=== PATIENT | male | born 1970 | race Caucasian/White ===

== ENCOUNTER 2017-03-08 20:00 | Inpatient (IN) | payer OTHER ==
[~2017-03-08] VITALS: Ht 193 cm; Wt 112.0 kg
--- NOTE | ~2017-03-08 | PN ---
Unit #: [id number] #: [id number] Patient: RENATE RUIZ [id number] [facility] [address] [place] [address] [id number] I MR#: [id number] NAME: RENATE RUIZ ROOM: P114 Age: 46 Sex: M Admission Date: 03/08/2017 : 1970 Attending Physician: Alex Goldstein M.D. Admitting Physician: Alex Goldstein M.D. Primary Care Physician: Primary Care Physician Leisa CONCEPCION PROGRESS NOTES DATE 03/11/2017 DISCUSSION Mr. Ruiz continues to be isolative in his room. He has mild to moderate detox symptoms and ongoing depressed mood with a downcast affect. He is alert and fully oriented. His memory and concentration are intact. His thought processes are logical and no active psychosis. He continues with suicidal ideation. ASSESSMENT 1. Major depression. 2. Alcohol dependence. PLAN Continue current treatment plan. Dictated by... Alex Goldstein M.D. ERIN/abigail TD: 03/11/2017 23:03 JOB #: [id number] [facility] PROGRESS NOTES Page 1 of 1 X Alex Goldstein MD PROGRESS NOTE
--- NOTE | ~2017-03-08 | PN ---
Unit #: [id number] #: [id number] Patient: RENATE MENDOZA [id number] [facility] [address] [place] [address] [id number] I MR#: [id number] NAME: RENATE MENDOZA ROOM: P110 Age: 46 Sex: M Admission Date: 03/08/2017 : 1970 Attending Physician: Alex Goldstein M.D. Admitting Physician: Alex Goldstein M.D. Primary Care Physician: Leisa Primary Care Physician CARLENE GARCIA NOTES DATE 03/14/2017. DISCUSSION Upon today's assessment, the patient was found sitting in the day room. He was pleasant and cooperative upon assessment and appeared to be in no apparent discomfort at this time. Upon assessment he still exhibited some coarse bilateral tremor in the upper extremity. He also complained of stomach discomfort as well as continuing issues with diarrhea. He does, however, report that his appetite is improved. AT this time he verbalizes no SI or HI and verbalizes no plan of intent at this time. He denies auditory or visual hallucinations and no overt symptoms of psychosis are noted. PLAN The patient reports that he has been in contact with the [facility] and stated that he plans to return there following the resolution of his signs and symptoms of withdrawal and after discharge planned for this coming Thursday. Dictated by Peyton Glaser APRN. Dictated by... Viridiana Alva A.P.R.N. for Alex Goldstein M.D. LATA/gz TD: 03/16/2017 08:17 JOB #: [id number] Unit #: [id number] #: [id number] Patient: RENATE MENDOZA PROGRESS NOTES Page 1 of 1 X Viridiana Alva PROGRESS NOTE
--- NOTE | ~2017-03-08 | DS ---
Unit #: [id number] #: [id number] Patient: RENATE MENDOZA [id number] [facility] [address] [place] [address] [id number] MR#: [id number] NAME: RENATE MENDOZA ROOM: P110 Age: 46 Sex: M Admission Date: 03/08/2017 : 1970 Discharge Date: 03/16/2017 Attending Physician: Alex Goldstein M.D. Primary Care Physician: Primary Care Physician No DISCHARGE SUMMARY Covering for Dr. Alex Goldstein REASON FOR ADMISSION Mr. Mendoza was admitted for alcohol abuse and dependence, and was admitted for safety and stabilization regarding withdrawal. He was generally quiet and withdrawn during hospitalization and isolated mostly to his room, during his stay at this facility he denied any suicidal or homicidal ideation. Mr. Mendoza safely completed withdrawal without any incident and upon discharge today he exhibited no signs and symptoms of withdrawal and denied any signs and symptoms of withdraw. He currently contracts for safety and denies suicidal or homicidal ideation, and voices no plan or intent, he denies auditory or visual hallucinations and no overt symptoms of psychosis is noted. He reports that prior to this admission, he had maintained four years of sobriety and he intends to followup with the [facility] as he did before. DISCHARGE DIAGNOSES [place] I Alcohol dependence with withdraw, acute, uncomplicated. [place] II Deferred. [place] III [place] IV [place] V FOLLOWUP CARE Follow up with the [facility]. DISCHARGE MEDICATIONS See medical record. CONDITION AT DISCHARGE Fair. PROGNOSIS Fair. DIET AND ACTIVITY Ad aubrey. Unit #: [id number] #: [id number] Patient: RENATE MENDOZA Dictated by... Hailey Amaya APRN for Mariama Walker/hoa TD: 03/20/2017 06:26 JOB #: [id number] DISCHARGE SUMMARY Page 1 of 1 X HAILEY AMAYA DISCHARGE SUMMARY
--- NOTE | ~2017-03-08 | PA ---
Unit #: [id number] #: [id number] Patient: BRENDAN RUIZ [id number] [facility] [address] [place] [address] [id number] I MR#: [id number] NAME: BRENDAN RUIZ ROOM: 14 Age: 46 Sex: M Admission Date: 03/08/2017 : 1970 Date of Assessment: 03/09/2017 Attending Physician: Alex Goldstein M.D. Admitting Physician: Alex Goldstein M.D. Primary Care Physician: Primary Care Physician No PSYCHIATRIC ASSESSMENT DATE OF SERVICE 03/09/2017. INFORMANTS The patient, reliable and [facility] records, reliable. CHIEF COMPLAINT Suicidal ideation. HISTORY OF PRESENT ILLNESS Brendan Ruiz is a 46-year-old man, who reports he recently relapsed on pain pills about 4 months ago after four years of sobriety. He had increasing depression with suicidal ideation and was unable to contract for safety. He was admitted for stabilization. PAST PSYCHIATRIC HISTORY One previous admission for chemical dependence and mood disorder. He has been taking Effexor and Depakote, but was noncompliant. FAMILY PSYCHIATRIC HISTORY There is a family history of both mental illness and substance abuse. SOCIAL HISTORY The patient denied any history of childhood abuse or neglect. He reports that he is a heterosexual man with no current partner. He is a high-school graduate, who is currently employed as a concrete cutter. PAST MEDICAL HISTORY Chronic back pain. MEDICATIONS None currently. ALLERGIES Morphine. SUBSTANCE USE HISTORY As noted, the patient has a history of abusing opioids and does have an alcohol use history as well. MENTAL STATUS EXAMINATION The patient presented as a mildly disheveled man, who appeared his stated age. He was cooperative with the examination. Speech was soft, but easily understood. Musculoskeletal examination was calm. His mood was Unit #: [id number] #: [id number] Patient: BRENDAN RUIZ depressed with a congruent affect. He was alert and fully oriented. Memory and concentration were fair. Thought processes were goal directed with no active psychosis. He reported suicidal ideation and could not contract for safety outside of the hospital. Insight and judgment were intact. Fund of knowledge and abstraction were intact. ASSETS AND LIABILITIES The patient knows local resources and presents voluntarily for treatment. Liabilities include recent relapse and erratic compliance with medication. ADMITTING DIAGNOSES AXIS I: Major depression, F33.2; opioid dependence; and alcohol abuse. AXIS II: No diagnosis. AXIS III: Chronic pain. AXIS IV: AXIS V: PSYCHIATRIC PLAN Mr. Ruiz was admitted and placed on suicide precautions and the alcohol detox protocol. Depakote and Effexor will be restarted and he will have physical examination and laboratory studies. TREATMENT GOALS Resolution of SI, improvement in insight, improvement in coping skills, and establishment of sobriety. PSYCHIATRIC PLAN The patient will be referred to chemical dependence and primary care physician. ESTIMATED LENGTH OF STAY 5 days. Dictated by... Alex Goldstein M.D. ERIN/kim TD: 03/09/2017 13:50 JOB #: [id number] PSYCHIATRIC ASSESSMENT Page 1 of 1 X Alex Goldstein MD X PSYCHIATRIC ASSESSMENT
--- NOTE | ~2017-03-08 | HP ---
Unit #: [id number] #: [id number] Patient: BRENDAN MENDOZA [id number] [place] [address] [id number] I MR#: [id number] NAME: BRENDAN MENDOZA ROOM: P114 Age: 46 Sex: M Admission Date: 03/08/2017 : 1970 Attending Physician: Alex Goldstein M.D. Admitting Physician: Alex Goldstein M.D. Primary Care Physician: Primary Care Physician No HISTORY AND PHYSICAL HISTORY OF PRESENT ILLNESS Brendan is a 46 year old admitted to [address] [place] [address] with depression and verbalizing wanting to hurt himself. He has had other admissions to this facility for the same. PAST MEDICAL HISTORY 1. Degenerative disc disease. a. Chronic back pain. 2. History of diverticulitis. PAST SURGICAL HISTORY Colon resection. ALLERGIES Morphine. SOCIAL HISTORY He does not smoke. Denies alcohol. He has a history of illicit drug use but denies anything currently. FAMILY HISTORY Medically noncontributory. REVIEW OF SYSTEMS He does not answer all questions appropriately. There are no reports of nausea, vomiting or diarrhea. He has had no cough or increased temperature. CURRENT MEDICATIONS 1. Detox protocol. 2. Depakote 500 mg b.i.d. 3. Effexor 75 mg q.h.s. PHYSICAL EXAMINATION GENERAL: Alert, well-nourished, in no apparent distress. VITAL SIGNS: Blood pressure 122/74, heart rate 80, respirations 16, temperature 98.6. WEIGHT: 225. HEIGHT: 6 foot 4 inches. SKIN: Warm and dry without rash or lesion. HEENT: Normocephalic. TMs not viewed. Oral and nasal passages clear. Conjunctivae clear. Pupils equal, round and reactive to light and accommodation. Extraocular movements intact. Unit #: [id number] #: [id number] Patient: BRENDAN MENDOZA NECK: Supple without lymphadenopathy or thyromegaly. HEART: Regular rate and rhythm without murmur. LUNGS: Clear. ABDOMEN: Soft, nontender. : Not done. EXTREMITIES: No evidence of cyanosis, clubbing or edema. Moves all extremities without focal deficit. NEUROLOGICAL: Grossly within normal limits. Cranial Nerves: II: Visual huynh are intact. III, IV AND : Extraocular movements are intact. Pupils are equal, round and reactive to light. V: Facial sensation is grossly normal. VII: Facial movements and expression are normal. VIII: Auditory acuity grossly intact. IX, X: Uvula is midline. Phonation is normal. XI: Patient shrugs shoulders and turns head normally. XII: Tongue protrudes in the midline. Sensory and Motor Function: Sensory and motor sensation is grossly normal. Motor: moves all extremities well. Coordination: Gait is normal. Deep Tendon Reflexes: Intact. IMPRESSION Psychiatric admission. RECOMMENDATIONS PSYCHIATRIC: Per psychiatrist. MEDICAL: I see no contraindications to participating in facility's activities. MEDICAL PROGNOSIS Good. MEDICAL CONDITION Stable. Dictated by... Maru Munson P.A.-C. for Mariama Hugo/luz maria TD: 03/09/2017 23:15 JOB #: [id number] HISTORY AND PHYSICAL Page 1 of 1 X Maru Munson X HISTORY AND PHYSICAL
--- NOTE | ~2017-03-08 | PN ---
Unit #: [id number] #: [id number] Patient: RENATE MENDOZA [id number] [facility] [address] [place] [address] [id number] MR#: [id number] NAME: RENATE MENDOZA ROOM: P110 Age: 46 Sex: M Admission Date: 03/08/2017 : 1970 Attending Physician: Alex Goldstein M.D. Admitting Physician: Alex Goldstein M.D. Primary Care Physician: Primary Care Physician Leisa CONCEPCION PROGRESS NOTES DATE 03/12/2017 DISCUSSION Upon today's assessment Mr. Mendoza was lying in bed and he was covered up with a blanket and stated "I feel rough due to the alcohol." He reports he had been drinking one-half gallon of vodka daily. He has complaints of nausea and diarrhea today although he reports less tremor. Upon assessment he had some mild bilateral tremor in the upper extremities. He denies suicidal or homicidal ideation at this time and verbalized no plan or intent. He denied auditory or visual hallucinations and no overt symptoms of psychosis were noted. Denied perceptional disturbances. We will continue to monitor Mr. Mendoza with the alcohol detox protocol and q 15 minute checks for safety. Dictated by... JARED Gonzalez/luz maria TD: 03/16/2017 05:21 JOB #: [id number] [facility] PROGRESS NOTES Page 1 of 1 X AMANDA AMAYA PROGRESS NOTE
--- NOTE | ~2017-03-08 | PN ---
Unit #: [id number] #: [id number] Patient: BRENDAN MENDOZA [id number] [facility] [address] [place] [address] [id number] I MR#: [id number] NAME: BRENDAN MENDOZA ROOM: P114 Age: 46 Sex: M Admission Date: 03/08/2017 : 1970 Attending Physician: Alex Goldstein M.D. Admitting Physician: Alex Goldstein M.D. Primary Care Physician: Primary Care Physician Leisa CONCEPCION PROGRESS NOTES DATE 03/10/2017 DISCUSSION Brendan continues to be depressed, downcast and isolated from peers and staff. He is alert and fully oriented. Memory and concentration are fair to poor. Thought processes are goal directed with no evidence of psychosis. He continues to suicidal ideation. He has minimal detox symptomatology. ASSESSMENT Major depression. PLAN Continue current treatment plan. Dictated by... Alex Goldstein M.D. [facility]/abigail TD: 03/11/2017 15:32 JOB #: [id number] [facility] PROGRESS NOTES Page 1 of 1 X Alex Goldstein MD PROGRESS NOTE
--- NOTE | ~2017-03-08 | PN ---
Unit #: [id number] #: [id number] Patient: RENATE MENDOZA [id number] [facility] [address] [place] [address] [id number] MR#: [id number] NAME: RENATE MENDOZA ROOM: P110 Age: 46 Sex: M Admission Date: 03/08/2017 : 1970 Attending Physician: Alex Goldstein M.D. Admitting Physician: Alex Goldstein M.D. Primary Care Physician: No Primary Care Physician CARLENE PROGRESS NOTES DATE 03/15/2017. DISCUSSION Upon today's assessment the patient was found sitting in the day room, appearing in no apparent discomfort. He reports that he is no longer suffering from any signs and symptoms of withdrawal and has had resolution of his diarrhea. He expresses that he wishes to discharge tomorrow, 03/16/2017, and follow up with the [facility]. At this time he denies any suicidal or homicidal ideation and verbalizes no plan or intent. He denies auditory or visual hallucinations and no overt symptoms of psychosis is noted. PLAN Discharge in the a.m. Dictated by Yesenia Glaser APRN. Dictated by... Viridiana Alva A.P.R.N. for Alex Goldstein M.D. LATA/gz TD: 03/16/2017 08:22 JOB #: [id number] [facility] PROGRESS NOTES Page 1 of 1 X Viridiana Alva PROGRESS NOTE
--- NOTE | ~2017-03-08 | PN ---
Unit #: [id number] #: [id number] Patient: RENATE MENDOZA [id number] [facility] [address] [place] [address] [id number] I MR#: [id number] NAME: RENATE MENDOZA ROOM: P110 Age: 46 Sex: M Admission Date: 03/08/2017 : 1970 Attending Physician: Alex Goldstein M.D. Admitting Physician: Alex Goldstein M.D. Primary Care Physician: Leisa Primary Care Physician CARLENE PROGRESS NOTES DATE 03/13/2017. DISCUSSION Upon today's assessment, the patient was found in his bedroom lying down. He was alert and oriented to person, place and situation and stated that he felt a bit better, but was still suffering from signs and symptoms of withdrawal, evidenced by diarrhea and slight coarse tremors in the bilateral upper extremities. At this time he denies homicidal or suicidal ideation and denies auditory or visual hallucinations and no overt symptoms of psychosis were noted. He denies perceptual disturbances. He states that his plan postoperative discharge is to follow up at the [facility] and that he has already been in contact with the gentleman who would help facilitate this move. PLAN Continue to monitor the patient per the [facility] detox protocol and (1) for safety. Dictated by Yesenia Glaser APRN. Dictated by... Viridiana Alva A.P.R.N. for Alex Goldstein M.D. LATA/gz TD: 03/16/2017 08:10 JOB #: [id number] [facility] PROGRESS NOTES Page 1 of 1 X Viridiana Alva PROGRESS NOTE
== END 2017-03-16 13:00 | disposition home or self-care (01) | DRG 881 ==
LOC: P1S 20:36 → POF 03-15 16:18 → P1S 03-15 16:21
PROC: HZ2ZZZZ Detoxification Services for Substance Abuse Treatment (ICD-10-PCS; principal; 2017-03-08)
DX: F32.9 Major depressive disorder, single episode, unspecified (principal); F11.20 Opioid dependence, uncomplicated; R45.851 Suicidal ideations; F10.10 Alcohol abuse, uncomplicated; G89.29 Other chronic pain
CPT/HCPCS: 80164; 82140